=== PATIENT | male | born 1985 | race American Indian/Alaskan Native ===

== ENCOUNTER 2022-06-01 10:26 | Emergency (ER) | payer OTHER ==
--- NOTE | 2022-06-01 10:29 | ERPHSYRPT ---
- History of Present Illness Time Seen by Provider: 06/01/22 10:29 Source: patient Exam Limitations: no limitations Physician History: This is a 37-year-old white male who was at work listening to presentation and suddenly became dizzy, felt nauseated became clammy and pale. Patient is not on any new medications. In the last week he has noticed some nasal congestion with left ear congestion. He has been taking Sudafed periodically the last week. He did not hit his head. He takes no medications chronically/daily. He has no known drug allergies. He has not noticed any fevers. He did vomit once at the facility and once here in the emergency department because of the dizziness. Patient states that his symptoms are worse when he tilts his head backwards. He denies chest pain. He denies shortness of breath. Timing/Duration: today Severity: mild Character of Deficits: none (To moderate) Deficits: no difficulties Baseline/Normal Cognition: alert oriented x 3 Current Cognition: alert oriented x 3 Baseline Gait: walks w/o assistance Associated Symptoms: nausea, vomiting (X2 since symptoms began prior to arrival), No fever, No weakness, No slurred speech, No trouble walking, No vision changes, No chest pain Allergies/Adverse Reactions: No Known Drug Allergies Allergy (Verified 06/01/22 10:45) Home Medications: Pseudoephedrine HCl [Sudafed] 1 dose PO BID 06/01/22 [History] Travel Risk - International Travel Have you traveled outside of the country in past 3 weeks: No - Coronavirus Screening Are you exhibiting any of the following symptoms?: Yes Symptoms: Vomiting/Diarrhea Close contact with a COVID-19 positive Pt in past 14-21 Days: No - Review of Systems Constitutional: No Symptoms Eyes: No Symptoms Ears, Nose, & Throat: Nose Congestion, Other (Left ear pressure/congestion) Respiratory: No Symptoms Cardiac: No Symptoms Abdominal/Gastrointestinal: Nausea, Vomiting Genitourinary Symptoms: No Symptoms Musculoskeletal: No Symptoms Skin: No Symptoms Neurological: Dizziness Psychological: No Symptoms Endocrine: No Symptoms Hematologic/Lymphatic: No Symptoms Immunological/Allergic: No Symptoms All Other Systems: Reviewed and Negative - Past Medical History Neurological History: No Pertinent History Cardiac History: No Pertinent History Respiratory History: No Pertinent History Endocrine Medical History: No Pertinent History Musculoskeletal History: Fractures Other Medical History: HX FX RIGHT FOOT IN HIGH SCHOOL - NO SURGERY. HX SX FOR LUMBAR DISCECTOMY 2014 L5-S1 WITH RESOLUTION OF SYMPTOMS - Nursing Vital Signs Nursing Vital Signs: Initial Vital Signs Pulse Rate 95 H 06/01/22 10:35 Respiratory Rate 14 06/01/22 10:35 Blood Pressure 177/83 06/01/22 10:35 O2 Sat by Pulse Oximetry 94 L 06/01/22 10:35 Pain Scale Pain Intensity 0 - Jane Coma Scale Best Eye Response ([place]): (4) open spontaneously Best Verbal Response ([place]): (5) oriented Best Motor Response ([place]): (6) obeys commands [place] Total: 15 - Physical Exam General Appearance: no apparent distress, alert, anxiety, obese Eye Exam: bilateral eye: normal inspection, PERRL, EOMI Ears, Nose, Throat Exam: normal ENT inspection, moist mucous membranes Neck Exam: normal inspection, non-tender, supple, full range of motion Respiratory: normal breath sounds, lungs clear, airway intact, No chest tenderness, No respiratory distress Cardiovascular: regular rate/rhythm, normal heart sounds, normal peripheral pulses Gastrointestinal: soft, normal bowel sounds, No tenderness Rectal Exam: not done Back Exam: normal inspection, normal range of motion, No CVA tenderness, No vertebral tenderness Extremity Exam: normal inspection, normal range of motion, pelvis stable Mental Status: alert, oriented x 3, 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 Exam: normal hearing, normal speech, PERRL Coordination/Gait: normal finger to nose, normal gait, normal cerebellar function Motor/Sensory: no motor deficit, no sensory deficit, no pronator drift Skin Exam: normal color, warm, dry SpO2 Interpretation: normal O2 Delivery: Room Air - Course Nursing assessment & vital signs reviewed: Yes EKG Interpreted by Me: RATE (67), Sinus Rhythm, NORMAL AXIS, NORMAL INTERVALS, NORMAL QRS, NORMAL ST-T, Other (No acute ischemic changes on today's twelve-lead EKG) Ordered Tests: Active Orders 24 hr Category Date Time Status Clean Catch Urine Specimen STAT Care 06/01/22 10:59 Active EKG-ER Only STAT Care 06/01/22 10:59 Active IV Insertion STAT Care 06/01/22 10:59 Active HEAD WITHOUT CONTRAST [CT] Stat Exams 06/01/22 10:59 Completed CBC W DIFF Stat Lab 06/01/22 11:12 Completed CMP Stat Lab 06/01/22 11:12 Completed ETHYL ALCOHOL Stat Lab 06/01/22 11:12 Completed MAGNESIUM Stat Lab 06/01/22 11:12 Completed TROPONIN Q4H Lab 06/01/22 11:12 Completed TROPONIN Q4H Lab 06/01/22 15:00 Ordered TROPONIN Q4H Lab 06/01/22 19:00 Ordered UA W/RFX UR CULTURE Stat Lab 06/01/22 12:31 Completed Urine Triage Profile Stat Lab 06/01/22 12:31 Ordered Medication Summary Discontinued Medications Generic Name Dose Route Start Last Admin Trade Name Kimber PRN Reason Stop Dose Admin Sodium Chloride 500 mls @ 500 mls/hr 06/01/22 11:00 06/01/22 12:10 Sodium Chloride 0.9% 500 Ml IV 06/01/22 11:59 Infused .Q1H ONE Infusion Sodium Chloride Confirm 06/01/22 11:02 Sodium Chloride 0.9% 500 Ml Administered 06/01/22 11:03 Dose 500 mls @ ud IV .STK-MED ONE Prochlorperazine Edisylate 5 mg 06/01/22 11:00 06/01/22 11:03 Prochlorperazine Edisylate 10 Mg/2 Ml Vial IV 06/01/22 11:01 5 mg STAT ONE Administration Prochlorperazine Edisylate Confirm 06/01/22 11:02 Prochlorperazine Edisylate 10 Mg/2 Ml Vial Administered 06/01/22 11:03 Dose 10 mg .ROUTE .STK-MED ONE Lab/Rad Data: Laboratory Result Diagrams 06/01/22 11:12 06/01/22 11:12 Laboratory Results 06/01/22 06/01/22 06/01/22 Range/Units 12:31 11:12 11:12 WBC (4.0-10.5) x10^3/uL RBC (4.1-5.6) x10^6/uL Hgb (12.5-18.0) g/dL Hct (42-50) % MCV (78-100) fL MCH (26-32) pg MCHC (32-36) g/dL RDW (11.5-14.0) % Plt Count (150-450) x10^3/uL MPV (7.5-11.0) fL Gran % (36.0-66.0) % Immature Gran % (Auto) (0.00-0.4) % Nucleat RBC Rel Count (0.00-0.1) % Eos # (Auto) (0-0.5) x10^3/uL Immature Gran # (Auto) (0.00-0.03) x10^3u/L Absolute Lymphs (auto) (1.0-4.6) x10^3/uL Absolute Monos (auto) (0.0-1.3) x10^3/uL Absolute Nucleated RBC (0.00-0.01) x10^3u/L Lymphocytes % (24.0-44.0) % Monocytes % (0.0-12.0) % Eosinophils % (0.00-5.0) % Basophils % (0.0-0.4) % Absolute Granulocytes (1.4-6.9) x10^3/uL Basophils # (0-0.4) x10^3/uL Sodium 140 (137-145) mmol/L Potassium 4.4 (3.5-5.1) mmol/L Chloride 100 (98-107) mmol/L Carbon Dioxide 31 H (22-30) mmol/L Anion Gap 13.4 (5-15) MEQ/L BUN 13 (9-20) mg/dL Creatinine 0.84 (0.66-1.25) mg/dL Estimated GFR > 60.0 ML/MIN Glucose 136 H (74-106) mg/dL Calcium 9.3 (8.4-10.2) mg/dL Magnesium 1.7 (1.6-2.3) mg/dL Total Bilirubin 0.90 (0.2-1.3) mg/dL AST 42 (17-59) U/L ALT 68 H (0-50) U/L Alkaline Phosphatase 59 (38-126) U/L Troponin I < 0.012 (0.000-0.034) ng/mL Serum Total Protein 7.8 (6.3-8.2) g/dL Albumin 4.4 (3.5-5.0) g/dL Urine Color Yellow (Yellow) Urine Appearance Clear (Clear) Urine pH 8.5 A (4.6-8.0) Ur Specific [place] 1.025 (1.005-1.030) Urine Protein Trace A (Negative) Urine Glucose (UA) Negative (Negative) mg/dL Urine Ketones Trace A (Negative) Urine Blood Negative (Negative) Urine Nitrite Negative (Negative) Urine Bilirubin Negative (Negative) Urine Urobilinogen 1.0 A (0.2) mg/dL Ur Leukocyte Esterase Negative (Negative) U Hyaline Cast (Auto) NONE SEEN (0-2) /LPF Urine Microscopic RBC 0-2 (0-5) /HPF Urine Microscopic WBC 0-2 (0-5) /HPF Ur Epithelial Cells None Seen (None Seen) /HPF Urine Bacteria None Seen (None Seen) /HPF Urine Culture Reflexed NO (NO) Ethyl Alcohol < 10 (0-10) mg/dL 06/01/22 Range/Units 11:12 WBC 4.9 (4.0-10.5) x10^3/uL RBC 4.70 (4.1-5.6) x10^6/uL Hgb 14.2 (12.5-18.0) g/dL Hct 42.2 (42-50) % MCV 89.8 (78-100) fL MCH 30.2 (26-32) pg MCHC 33.6 (32-36) g/dL RDW 12.0 (11.5-14.0) % Plt Count 174 (150-450) x10^3/uL MPV 10.6 (7.5-11.0) fL Gran % 70.3 H (36.0-66.0) % Immature Gran % (Auto) 0.2 (0.00-0.4) % Nucleat RBC Rel Count 0.0 (0.00-0.1) % Eos # (Auto) 0.06 (0-0.5) x10^3/uL Immature Gran # (Auto) 0.01 (0.00-0.03) x10^3u/L Absolute Lymphs (auto) 1.09 (1.0-4.6) x10^3/uL Absolute Monos (auto) 0.28 (0.0-1.3) x10^3/uL Absolute Nucleated RBC 0.00 (0.00-0.01) x10^3u/L Lymphocytes % 22.2 L (24.0-44.0) % Monocytes % 5.7 (0.0-12.0) % Eosinophils % 1.2 (0.00-5.0) % Basophils % 0.4 (0.0-0.4) % Absolute Granulocytes 3.46 (1.4-6.9) x10^3/uL Basophils # 0.02 (0-0.4) x10^3/uL Sodium (137-145) mmol/L Potassium (3.5-5.1) mmol/L Chloride (98-107) mmol/L Carbon Dioxide (22-30) mmol/L Anion Gap (5-15) MEQ/L BUN (9-20) mg/dL Creatinine (0.66-1.25) mg/dL Estimated GFR ML/MIN Glucose (74-106) mg/dL Calcium (8.4-10.2) mg/dL Magnesium (1.6-2.3) mg/dL Total Bilirubin (0.2-1.3) mg/dL AST (17-59) U/L ALT (0-50) U/L Alkaline Phosphatase (38-126) U/L Troponin I (0.000-0.034) ng/mL Serum Total Protein (6.3-8.2) g/dL Albumin (3.5-5.0) g/dL Urine Color (Yellow) Urine Appearance (Clear) Urine pH (4.6-8.0) Ur Specific [place] (1.005-1.030) Urine Protein (Negative) Urine Glucose (UA) (Negative) mg/dL Urine Ketones (Negative) Urine Blood (Negative) Urine Nitrite (Negative) Urine Bilirubin (Negative) Urine Urobilinogen (0.2) mg/dL Ur Leukocyte Esterase (Negative) U Hyaline Cast (Auto) (0-2) /LPF Urine Microscopic RBC (0-5) /HPF Urine Microscopic WBC (0-5) /HPF Ur Epithelial Cells (None Seen) /HPF Urine Bacteria (None Seen) /HPF Urine Culture Reflexed (NO) Ethyl Alcohol (0-10) mg/dL - Progress Progress: improved Progress Note: 06/01/22 13:06 CT scan of the head without contrast was read by radiologist Dr. Ej Gilliam. I reviewed the impression. The impression states remote lacunar infarct right basal ganglia with minimal paranasal sinus disease. No evidence of intracranial bleed. I spoke with Dr. Gilliam regarding the ability of the noncontrasted CT scan of the head to determine whether this is truly remote or an acute finding. He is cer derekn that the finding is remote. We briefly discussed the use of MRI or contrast study and he felt an additional study was not necessary to determine acute versus remote and this patient. This patient's medical issue is 1 of moderate complexity. The level of complexity and the work-up performed is based on review of the patient's past medical history, medication list review and review of the patient's drug allergy list. In addition we took into account the patient's history of present illnes s and physical findings on examination. Patient is neurologically intact. We did perform a CT scan of the head without contrast, placed an intravenous line, ordered urinalysis, CBC, CMP and a twelve-lead EKG. I reviewed the results of these studies. We are awaiting the results of the urinalysis at this time. There is some mild paranasal sinus disease. We will treat this with antibiotics. I will also add Antivert for treatment of this patient's dizziness. Patient will be referred back to his primary care physician for further evaluation management. Counseled pt/family regarding: lab results, diagnosis, need for follow-up, rad results Medical Desision Making - Discussion of managment Reviewed:: Test results Agreed on:: Treatment plan, need for follow-up - Diagnostic Testing Diagnostic test were ordered, analyzed, and reviewed by me: Yes Radiological Interpretation: Reviewed by me, Discussed w/ radiologist, Teleradiologist Report - Risk of complications The pt has a mod risk of morbidity or mortality based on: Need for prescription drug management - Departure Departure Disposition: Home Clinical Impression: Sinusitis, Dizziness Condition: Stable Critical Care Time: No Referrals: Provider,Unknown [Primary Care Provider] - Follow up/PCP as directed Additional Instructions: Take the antibiotics as prescribed. Use the vertigo medicine as prescribed. Call your primary care doctor today and make an appointment to be seen in the next 3 to 5 days. Prescriptions: Amoxicillin 500 mg Cap [Amoxil 500 mg] 500 mg PO TID #30 cap Meclizine HCl 25 mg [Antivert 25 mg] 25 mg PO Q8H PRN #10 tablet PRN Reason: Dizziness
[2022-06-01] MEDS ORDERED: Sodium Chloride 0.9% 500 ML 500 ML IV ONE ×2 (11:00→11:02)
[2022-06-01] MEDS ORDERED: Compazine 10 MG/2 ML IV ONE (11:00)
[2022-06-01] MEDS ORDERED: Compazine 10 MG/2 ML ONE (11:02)
[2022-06-01 11:19] LABS: Absolute Neutrophil Ct (ANC) 3.46 x10^3/uL (1.4-6.9); BASOPHIL % 0.4 % (0.0-0.4); Basophil (Absolute #) 0.02 x10^3/uL (0-0.4); Eosinophil % 1.2 % (0.00-5.0); Eosinophil (Absolute #) 0.06 x10^3/uL (0-0.5); Hematocrit 42.2 % (42-50); Hemoglobin 14.2 g/dL (12.5-18.0); IMMATURE GRAN # 0.01 x10^3u/L (0.00-0.03); IMMATURE GRAN % 0.2 % (0.00-0.4); Lymphocyte (Absolute #) 1.09 x10^3/uL (1.0-4.6); Lymphocytes % 22.2 % (24.0-44.0); Mean Cell Volume 89.8 fL (78-100); Mean Corpuscular Hemoglobin 30.2 pg (26-32); Mean Corpuscular Hgb Concent. 33.6 g/dL (32-36); Mean Platelet Volume 10.6 fL (7.5-11.0); Monocyte (Absolute #) 0.28 x10^3/uL (0.0-1.3); Monocytes % 5.7 % (0.0-12.0); Neutrophil % 70.3 % (36.0-66.0); Platelet Count 174 x10^3/uL (150-450); White Blood Count 4.9 x10^3/uL (4.0-10.5)
[2022-06-01 11:43] LABS: ALBUMIN 4.4 g/dL (3.5-5.0); ALKALINE PHOSPHATASE 59 U/L (38-126); ANION GAP 13.4 MEQ/L (5-15); BLOOD UREA NITROGEN 13 mg/dL (9-20); CHLORIDE 100 mmol/L (98-107); Calcium 9.3 mg/dL (8.4-10.2); Carbon Dioxide 31 mmol/L (22-30); Creatinine 1 0.84 mg/dL (0.66-1.25); EST GLOMERULAR FILTRATION RATE > 60.0 ML/MIN; ETHYL ALCOHOL < 10 mg/dL (0-10); Glucose 136 mg/dL (74-106); MAGNESIUM 1.7 mg/dL (1.6-2.3); Potassium 4.4 mmol/L (3.5-5.1); SGOT/AST 42 U/L (17-59); SGPT/ALT 68 U/L (0-50); SODIUM 140 mmol/L (137-145); Total Protein 7.8 g/dL (6.3-8.2)
--- NOTE | 2022-06-01 11:46 | XRAY ---
Indication: Dizziness and vomiting. Multiple contiguous axial images obtained through the head without contrast. Comparison: None Ventriculosulcal pattern appears symmetric. 3 mm remote lacunar infarct right basal ganglia. No acute intracranial hemorrhage, abnormal extra-axial fluid collection, or mass effect. Fourth ventricle is midline without hydrocephalus. Hall-white matter differentiation preserved. Bony calvarium intact. Minimal mucosal thickening both maxillary sinuses. Mastoid air cells are clear. Impression: Remote lacunar infarct right basal ganglia and minimal paranasal sinus disease. Remaining CT head without contrast exam is negative.
[2022-06-01 13:12] VITALS: BP 134/90; PULSE 81; O2SAT 84
[2022-06-01 13:15] LABS: Appearance Clear (Clear); Bilirubin Negative (Negative); Blood Negative (Negative); Glucose, Urine Negative (Negative); Ketones Trace (Negative); Leukocyte Esterase Negative (Negative); Nitrite Negative (Negative); Ph 8.5 (4.6-8.0); Protein,Urine Dip Trace (Negative); Specific Gravity 1.025 (1.005-1.030)
[2022-06-01 13:23] LABS: Bacteria None Seen /HPF (None Seen); Epithelial Cells None Seen /HPF (None Seen); Hyaline Casts NONE SEEN /LPF (0-2); RBC 0-2 /HPF (0-5); WBC 0-2 /HPF (0-5)
[2022-06-01 13:25] LABS: ADD URINE CULTURE? NO (NO)
[2022-06-01 13:33] LABS: Amphetamine,Urine NEGATIVE (NEGATIVE); Barbiturate,Urine NEGATIVE (NEGATIVE); Benzodiazepine,Urine NEGATIVE (NEGATIVE); Cocaine,Urine NEGATIVE (NEGATIVE); Methadone,Urine NEGATIVE (NEGATIVE); Opiate,Urine NEGATIVE (NEGATIVE); PCP,Urine NEGATIVE (NEGATIVE); THC,Urine NEGATIVE (NEGATIVE)
== END 2022-06-01 13:51 | disposition home or self-care (01) ==
LOC: ED 10:26
DX: J32.9 Chronic sinusitis, unspecified (principal); R42 Dizziness and giddiness; R11.2 Nausea with vomiting, unspecified
CPT/HCPCS: 36000; 36415; 70450; 80053; 80307; 81001; 82077; 83735; 84484; 85025; 93005; 96360; 96374; 99284